=== PATIENT | female | born 1950 | race Caucasian/White ===

== ENCOUNTER → 2017-07-18 | Outpatient (CLI) | payer OTHER | END | disposition home or self-care (01) | LOC: EKG 09:50 | DX: C50.919 Malignant neoplasm of unspecified site of unspecified female breast (principal) | CPT/HCPCS: 93306 ==

== ENCOUNTER 2017-10-24 11:37 | Emergency (ER) | payer OTHER ==
[2017-10-24] MEDS: traMADol 50 MG TAB PO (12:48)
== END 2017-10-24 14:11 | disposition home or self-care (01) ==
LOC: FTE 11:37
DX: S72.414A Nondisplaced unspecified condyle fracture of lower end of right femur, initial encounter for closed fracture (principal); I10 Essential (primary) hypertension; W01.0XXA Fall on same level from slipping, tripping and stumbling without subsequent striking against object, initial encounter; Y92.9 Unspecified place or not applicable; Z96.651 Presence of right artificial knee joint
CPT/HCPCS: 29505; 73562; 99283-25